=== PATIENT | female | born 1965 | race Caucasian/White ===

== ENCOUNTER 2021-01-02 07:34 | Emergency (ER) | payer OTHER ==
[~2021-01-02] VITALS: Ht 162.6 cm; Wt 90.7 kg
[~2021-01-02 07:34] MED LIST: AMITRIPTYLINE H10 M1 PO; APAP500 PO; ARIMIDEX1 MG PO; CELEXA 20 MG TA20 MG PO; CUBICIN500 MG IV; CYCLOBENZAPRINE10 MG PO; DECADRON; DEXAMETHASONE 44 M1 PO; DEXAMETHASONE4 MG PO; DILAUDID 2 MG TA2 MG PO; DILAUDID 4 MG TA4 M1 PO; DILAUDID4 MG PO; ENDOCET 5-3251 EACH PO; FISH OIL 1,4001 EACH; FISHOIL PO; FLEXERIL PO; GABAPENTIN100 MG PO; HERCEPTIN KIT440 M1; KLOR-CON M2020 MEQ PO; LORAZEPAM 1 MG T1 M1 PO; MARINOL5 MG PO; MELOXICAM7.5 MG PO; METHADONE HCL5 MG PO; MOBIC15 MG PO; MOBIC7.5 MG PO; MULTIVITAMINS PO; NEURONTIN 300300 M1 PO; NEURONTIN 400400 M1 PO; NORCO 5-325 TA1 EACH PO; NUCYNTA75 MG PO; OMEPRAZOLE 20 M20 M1 PO; OMEPRAZOLE40 MG PO; OXECTA5 MG PO; OXYCODONE-ACET1 EACH PO; OXYCODONE-APAP1 EAC6 PO; OXYCONTIN20 MG PO; PAXIL40 MG PO; PERCOCET 10-321 EACH; PERCOCET 10-321 EACH PO; PERCOCET 5-3251 EACH PO; PERCOCET 7.5-31 EACH PO; PHENERGAN 25 MG25 M1 PO; PRILOSEC20 MG PO; PRILOSEC40 MG PO; RELAFEN500 MG PO; RELAFEN750 MG PO; ROXICODONE5 M2 PO; SOY ISOFLAVONES40 MG PO; STERIOID; STRESSTABS1 EACH PO; TIZANIDINE HCL 22 M1 PO; VALTREX 500 MG500 MG PO; VENLAFAXIN37.5 MG/1 PO; VERAPAMIL HCL40 MG PO; VITAMIN D35000 UNI1 PO; WOMEN 50 + VIT1 EACH PO; XANAX 0.25 MG0.25 MG PO; ZANAFLEX2 M1 PO; ZOFRAN; ZOFRAN8 MG PO; ZOLOFT100 MG PO; ZOLOFT50 MG PO; ZPAK PO; [UNRECOGNIZED DRUG - OTHER] OR
[2021-01-02] MEDS ORDERED: MAGNESIUM250 M1 PO (07:57)
[2021-01-02 09:51] LABS: CALCIUM 9.1 mg/dL (8.5-10.1); POTASSIUM 4.5 mmol/L (3.5-5.1)
[2021-01-02 09:56] LABS: ABSOLUTE NEUTROPHILS 5.5 thou/uL (1.4-8.2); BASOPHILS 0.9 % (0.0-2.0); EOSINOPHILS 1.2 % (0.0-3.0); HEMATOCRIT 43.7 % (37.0-47.0); HEMOGLOBIN 15.1 gm/dL (12.0-15.0); LYMPHOCYTES 37.4 % (24.0-44.0); MCH 36.6 pg (26.0-34.0); MCHC 34.6 g/dL (28.0-37.0); MCV 105.7 fL (80.0-100.0); MONOCYTES 4.5 % (1.0-8.0); PLATELET COUNT 249 thou/uL (150-400); RBC 4.13 mil/uL (4.20-5.00); RDW 15.3 % (10.5-14.5); WBC 9.8 thou/uL (4.0-11.0)
[2021-01-02 10:03] LABS: ALBUMIN 3.5 g/dL (3.4-5.0); TOTAL BILIRUBIN 0.2 mg/dL (0.2-1.0); TOTAL PROTEIN 7.8 g/dL (6.4-8.2)
--- NOTE | 2021-01-02 13:06 | EKG ---
[place] [address] [facility] [place] [address] ELECTROCARDIOGRAM REPORT Name: ANA BARTON Room #: REG ABDOULAYE Velasco#: [id number] Admission: 01/02/21 Attend Phys: Discharge: Date of : 69 Report #: [id number] [facility] ED Test Date: 2021-01-02 Test Time: 07:56:23 Pat Name: ANA BARTON Department: Room: Gender: F It Data Architect: ESME : 1965 Requested By: Vikram Aguilar Order Number: [id number] MD: Jarek Brown Measurements Intervals [place] Rate: 109 P: 53 RI: 165 QRS: -9 QRSD: 107 T: 32 QT: 340 QTc: 458 Interpretive Statements Sinus tachycardia Small inferior Q waves Right ventricular conduction delay Compared to ECG 06/06/2011 14:46:12 No significant changes found Electronically Signed On 01-02-2021 13:06:31 CDT by Jarek Brown [email or web address] <ELECTRONICALLY SIGNED> By: Jarek Brown MD, [facility] 01/02/21 [id number] Jarek Brown MD, FACC /EPI
[2021-01-02 14:09] VITALS: BP 130/44
== END 2021-01-02 14:10 | disposition home or self-care (01) ==
LOC: ER 07:34
PROVIDERS: Student in an Organized Health Care Education/Training Program
DX: T40.3X1A Poisoning by methadone, accidental (unintentional), initial encounter (principal); K21.9 Gastro-esophageal reflux disease without esophagitis; Z90.710 Acquired absence of both cervix and uterus; Z90.49 Acquired absence of other specified parts of digestive tract; Z85.3 Personal history of malignant neoplasm of breast; Z79.1 Long term (current) use of non-steroidal anti-inflammatories (NSAID); Z79.891 Long term (current) use of opiate analgesic; Z88.6 Allergy status to analgesic agent; Z88.5 Allergy status to narcotic agent; Z88.0 Allergy status to penicillin; Z88.2 Allergy status to sulfonamides; Z88.8 Allergy status to other drugs, medicaments and biological substances